=== PATIENT | male | born 1995 | race Caucasian/White ===

== ENCOUNTER 2017-03-25 14:46 | Emergency (ER) | payer BC ==
[2017-03-25] MEDS ORDERED: ONDANSETRON 4 MG/2 ML VIAL IVP ONE ×2 (15:11→15:21)
[2017-03-25] MEDS ORDERED: NS 1,000 ML IV ONE ×2 (15:12→15:21)
[2017-03-25] MEDS ORDERED: PROMETHAZINE HCL 25 MG/ML INJ IVP ONE (15:21)
[2017-03-25] MEDS ORDERED: FAMOTIDINE 20 MG/NACL 50 ML IV ONE (15:21)
--- NOTE | 2017-03-25 15:27 | EDPHY ---
H & P Time Seen by Provider: 03/25/17 15:12 HPI/ROS: HPI Nausea and vomiting, weakness and fatigue. 21-year-old male by private vehicle with his friend. He is a student [employer]. He was out drinking alcohol last night. He reports he did 9-10 shots of liquor between the hours of 9:00 p.m. and 12 midnight. He reports he went to sleep at 12 midnight. He reports he woke at 6:00 a.m. tried to drink some water, became nauseous and started vomiting. He has been unable to keep any fluids down since last night. He was seen at an urgent care earlier today. He was given Zofran 2 L of IV normal saline as well as some morphine. He felt better. He then left the urgent care and started throwing up again. He describes having diffuse crampy abdominal discomfort. No diarrhea. ROS: Constitutional: No fever, no chills. He describes generalized weakness. Eyes: No discharge. No changes in vision. ENT: No sore throat. No nasal congestion or rhinorrhea. Respiratory: No cough. No shortness of breath. Cardiac: No chest pain, no palpitations. Gastrointestinal: As above, no diarrhea. Genitourinary: No hematuria. No dysuria or increased frequency with urination. Musculoskeletal: No back pain. No neck pain. No myalgias or arthralgias. Skin: No rashes. Neurological: No headache. No focal weakness or altered sensation. Past medical history: Cholecystectomy, irritable bowel syndrome. Social history: Nonsmoker. Student [employer]. Here with his friend. Drinks alcohol socially. Physical Exam: General Appearance: Alert, he appears uncomfortable. This patient is responding to questions appropriately and in full sentences. This patient appears well-hydrated and well-nourished. Eyes: Pupils equal and round no pallor or injection. No lid edema, erythema or injection. ENT, Mouth: Mucous membranes are dry. Respiratory: There are no retractions, lungs are clear to auscultation with good air movement bilaterally. Cardiovascular: Regular rate and rhythm. Bradycardia. No murmur. Gastrointestinal: Abdomen is soft and nontender, no masses, bowel sounds normal. No focal tenderness at McBurney's point. No Palomo sign. Neurological: Motor sensory function is grossly intact. Cranial nerves are normal. Gait is normal. Skin: Warm and dry, no rashes. Musculoskeletal: Neck is supple and nontender. Extremities are symmetrical. All joints range without pain or impingement. Psychiatric: No agitation. No depression. Database: EKG: EKG time is 3:35 p.m.; EKG shows a sinus bradycardia, narrow complex with ventricular rate of 40. Probable left ventricular hypertrophy, biphasic T-wave inversions noted in V1 through V3. QTC interval prolonged at 5:35 a.m.. Interpreted by me. EKG 2, time 5:52 p.m.; sinus bradycardia with ventricular rate of 46. Nonspecific intraventricular conduction delay noted. EKG interpretation probable left ventricular hypertrophy. Biphasic T-wave noted in V1 and V2. Imaging: Upright abdominal x-ray series: No obstructive pattern. No free air. Interpreted by me. Procedures: Emergency department course: IV placed. Patient placed on a wet machine cutter. Vital signs reviewed. Patient afebrile. Patient's heart rate has been in the upper 30s to low 40s. This may be partially secondary to the anxiety lytic affect of morphine he was given at urgent care. EKG will be obtained. Patient started on IV normal saline with 1-2 L to be given over the next 1-2 hours. Patient will initially be given 4 mg of IV Zofran, 20 mg of IV Pepcid and 6.25 mg of IV Phenergan. 3:30 p.m., discussed patient's low heart rate. He reports that his heart rate usually runs in the low to mid 40s. EKG being obtained. He reports his father is a physician. He denies any antihypertensive medication or beta blockers. He does not engage in insurance sports. 3:40 p.m., EKG reviewed, echocardiogram ordered. 4:25 p.m., echocardiogram completed, study grossly normal. Official read by director multimedia pending. Patient re-evaluated. He was started on his 2nd L of IV normal saline in our emergency department he will be given 0.25 mg of IV hydromorphone for abdominal discomfort which she describes as cramping in his upper abdomen. Results of his diagnostic studies discussed with him. central communications specialist shows a narrow complex sinus bradycardia with ventricular rate of 48. 5:45 p.m.. Spoke to the patient's father. His named Antonio. He is an anesthesiologist. The patient's case, emergency department workup and all test results were discussed with him in detail. The patient is doing much better at this time. He is tolerating oral fluids. He states that he feels much better. His father feels comfortable with him going home. We will arrange for follow- up with Cardiology. 5:50 p.m., patient re-evaluated. Resting comfortably at this time. He is much more alert. He has got good color in his cheeks. He is tolerating oral fluids. He reports to me that he feels much, much better. I discussed my conversation with his father. I will repeat an EKG. His wet machine cutter currently shows a sinus rhythm with a ventricular rate in the 70s. Narrow complex. Plan for discharge and follow-up discussed with the patient. Return to emergency department precautions reviewed. All of his questions were answered. He was discharged in good condition. Differential Diagnosis: The differential diagnosis on this patient includes but is not limited to food borne illness, gastritis, bradycardia. Cholecystitis, pancreatitis, bowel obstruction, appendicitis, other surgical etiology unlikely. This represents a partial list of diagnoses considered. These considerations are based on history , physical exam, past history, reassessment and diagnostic testing. Smoking Status: Current every day smoker Constitutional: Initial Vital Signs Temperature (C) 36.6 C 03/25/17 14:47 Heart Rate 38 L 03/25/17 14:47 Respiratory Rate 18 03/25/17 14:47 O2 Sat (%) 99 03/25/17 14:47 O2 Delivery Mode Room Air Allergies/Adverse Reactions: No Known Allergies Allergy (Unverified 03/25/17 16:32) Home Medications: Medication Instructions Recorded NK [No Known Home Meds] 03/25/17 Medical Decision Making - Diagnostics Imaging Results: Imaging Impressions Abdomen X-Ray 03/25/17 15:22 Impression: 1. Normal upright abdomen series. - Data Points Laboratory Results: Laboratory Results 03/25/17 15:25 03/25/17 15:25 03/25/17 03/25/17 03/25/17 15:25 15:25 15:25 WBC 12.00 10^3/uL H 10^3/uL (3.80-9.50) RBC 5.20 10^6/uL 10^6/uL (4.40-6.38) Hgb 15.4 g/dL g/dL (13.7-17.5) Hct 44.4 % % (40.0-51.0) MCV 85.4 fL fL (81.5-99.8) MCH 29.6 pg pg (27.9-34.1) MCHC 34.7 g/dL g/dL (32.4-36.7) RDW 12.6 % % (11.5-15.2) Plt Count 321 10^3/uL 10^3/uL (150-400) MPV 10.7 fL fL (8.7-11.7) Neut % (Auto) 88.1 % H % (39.3-74.2) Lymph % (Auto) 8.1 % L % (15.0-45.0) [place] % (Auto) 2.9 % L % (4.5-13.0) Eos % (Auto) 0.1 % L % (0.6-7.6) Baso % (Auto) 0.4 % % (0.3-1.7) Nucleat RBC Rel Count 0.0 % % (0.0-0.2) Absolute Neuts (auto) 10.57 10^3/uL H 10^3/uL (1.70-6.50) Absolute Lymphs (auto) 0.97 10^3/uL L 10^3/uL (1.00-3.00) Absolute Monos (auto) 0.35 10^3/uL 10^3/uL (0.30-0.80) Absolute Eos (auto) 0.01 10^3/uL L 10^3/uL (0.03-0.40) Absolute Basos (auto) 0.05 10^3/uL 10^3/uL (0.02-0.10) Absolute Nucleated RBC 0.00 10^3/uL 10^3/uL (0-0.01) Immature Gran % 0.4 % % (0.0-1.1) Immature Gran # 0.05 10^3/uL 10^3/uL (0.00-0.10) PT 14.2 SEC SEC (12.0-15.0) INR 1.11 (0.83-1.16) APTT 28.1 SEC SEC (23.0-38.0) Sodium 138 mEq/L mEq/L (134-144) Potassium 4.4 mEq/L mEq/L (3.5-5.2) Chloride 102 mEq/L mEq/L (97-110) Carbon Dioxide 20 mEq/l L mEq/l (22-31) Anion Gap 16 mEq/L mEq/L (8-16) BUN 12 mg/dL mg/dL (7-23) Creatinine 0.9 mg/dL mg/dL (0.7-1.3) Estimated GFR > 60 Glucose 87 mg/dL mg/dL (70-100) Calcium 10.3 mg/dL mg/dL (8.5-10.4) Total Bilirubin 3.4 mg/dL H mg/dL (0.1-1.4) Conjugated Bilirubin 0.5 mg/dL mg/dL (0.0-0.5) Unconjugated Bilirubin 2.9 mg/dL H mg/dL (0.0-1.1) AST 21 IU/L IU/L (17-59) ALT 35 IU/L IU/L (21-72) Alkaline Phosphatase 87 IU/L IU/L (38-126) Troponin I < 0.012 ng/mL ng/mL (0.000-0.034) NT-Pro-B Natriuret Pep 80 pg/mL pg/mL (0-125) Total Protein 7.9 g/dL g/dL (6.3-8.2) Albumin 5.1 g/dL H g/dL (3.5-5.0) Lipase 20 IU/L L IU/L (23-300) Medications Given: Discontinued Medications Hydromorphone HCl (Dilaudid) 0.25 mg IVP EDNOW ONE Stop: 03/25/17 16:25 Last Admin: 03/25/17 16:30 Dose: 0.25 mg Sodium Chloride (Ns) 1,000 mls @ 0 mls/hr IV EDNOW ONE PRN Reason: Wide Open Stop: 03/25/17 15:13 Last Admin: 03/25/17 15:23 Dose: 1,000 mls Sodium Chloride (Ns) 1,000 mls @ 0 mls/hr IV EDNOW ONE; Wide Open PRN Reason: Protocol Stop: 03/25/17 15:22 Last Admin: 03/25/17 16:29 Dose: 1,000 mls Famotidine/Sodium Chloride (Pepcid 20 Mg (Premix)) 50 mls @ 200 mls/hr IV EDNOW ONE Stop: 03/25/17 15:35 Last Admin: 03/25/17 15:40 Dose: 50 mls Ondansetron HCl (Zofran) 4 mg IVP EDNOW ONE Stop: 03/25/17 15:12 Last Admin: 03/25/17 15:23 Dose: 4 mg Ondansetron HCl (Zofran) 4 mg IVP EDNOW ONE Stop: 03/25/17 15:22 Last Admin: 03/25/17 15:38 Dose: Not Given Promethazine HCl (Phenergan) 6.25 mg IVP EDNOW ONE Stop: 03/25/17 15:22 Last Admin: 03/25/17 16:39 Dose: Not Given Departure - Departure Disposition: Home, Routine, Self-Care Clinical Impression: Bradycardia, Nausea and vomiting, Dehydration, Hyperbilirubinemia Condition: Good Instructions: Dehydration (ED), Acute Nausea and Vomiting (ED) Additional Instructions: Read and follow provided instructions. Follow-up with Cardiology, Dr. Edward Salgado, or 1 of his partners this week for further evaluation as discussed. Call their office Sunday morning at 9:00 a.m. for appointment time. They will have access to the test we did here as well as the echocardiogram. Do not drink alcohol. Keep well hydrated. A good fluid to drink is Gatorade mixed with water in a 1- 1 dilution over ice. Return to the emergency department for worsening symptoms, abdominal pain, vomiting and inability to keep fluids down despite medications, weakness, lightheadedness, chest pain, shortness of breath or other serious concerns. Referrals: ANGEL LUIS BELLA [Other] - As per Instructions Edward Salgado MD [Medical Doctor] - As per Instructions
[2017-03-25 15:37] LABS: % IMMATURE GRANULYOCYTES 0.4 % (0.0-1.1); ABSOLUTE IMMATURE GRANULOCYTES 0.05 10^3/uL (0.00-0.10); ADD DIFF? NO; ADD MORPH? NO; ADD SCAN? NO; ATYPICAL LYMPHOCYTE FLAG 0 (0-99); FRAGMENT RBC FLAG 0 (0-99); HEMATOCRIT 44.4 % (40.0-51.0); HEMOGLOBIN 15.4 g/dL (13.7-17.5); LEFT SHIFT FLG 0 (0-99); LIPEMIA HEMOLYSIS FLAG 90 (0-99); MEAN CELL HEMOGLOBIN 29.6 pg (27.9-34.1); MEAN CELL HEMOGLOBIN CONCENTR. 34.7 g/dL (32.4-36.7); MEAN CELL VOLUME 85.4 fL (81.5-99.8); MEAN PLATELET VOLUME 10.7 fL (8.7-11.7); PLATELET CLUMPS FLAG 10 (0-99); PLATELET COUNT 321 10^3/uL (150-400); RED CELL DISTRIBUTION WIDTH 12.6 % (11.5-15.2)
--- NOTE | 2017-03-25 15:37 | CPEKG ---
Heart Rate: 40 RR Interval: 1500 P-R Interval: 140 QRSD Interval: 104 QT Interval: 612 QTC Interval: 500 P Withee: 57 QRS Withee: 70 T Wave Withee: 79 EKG Severity - ABNORMAL ECG - EKG Impression: SINUS BRADYCARDIA EKG Impression: PROBABLE LEFT VENTRICULAR HYPERTROPHY EKG Impression: ABNORMAL T, CONSIDER ISCHEMIA, ANT-LAT LEADS EKG Impression: PROLONGED QT INTERVAL Electronically Signed By: Bethanie Blackwood 25-Mar-2017 20:38:45
[2017-03-25 15:48] LABS: INR 1.11 (0.83-1.16); PROTIME(PATIENT) 14.2 SEC (12.0-15.0)
[2017-03-25 15:49] LABS: APTT 28.1 SEC (23.0-38.0)
[2017-03-25 15:57] LABS: ALANINE AMINOTRANSFERASE 35 IU/L (21-72); ALBUMIN 5.1 g/dL (3.5-5.0); ALKALINE PHOSPHATASE 87 IU/L (38-126); ANION GAP 16 mEq/L (8-16); ASPARTATE AMINOTRANSFERASE 21 IU/L (17-59); BILIRUBIN,TOTAL 3.4 mg/dL (0.1-1.4); BILIRUBIN-CONJUGATED 0.5 mg/dL (0.0-0.5); BILIRUBIN-UNCONJUGATED 2.9 mg/dL (0.0-1.1); CALCIUM 10.3 mg/dL (8.5-10.4); CARBON DIOXIDE 20 mEq/l (22-31); CHLORIDE 102 mEq/L (97-110); CREATININE 0.9 mg/dL (0.7-1.3); GLOMERULAR FILTRATION RATE > 60; GLUCOSE 87 mg/dL (70-100); POTASSIUM 4.4 mEq/L (3.5-5.2); SODIUM 138 mEq/L (134-144); TOTAL PROTEIN 7.9 g/dL (6.3-8.2)
[2017-03-25 16:08] LABS: TROPONIN I < 0.012 ng/mL (0.000-0.034)
[2017-03-25] MEDS ORDERED: HYDROmorphONE/DILAUDID 1 MG/ML INJ IVP ONE (16:24)
[2017-03-25 17:44] VITALS: TEMP 97.7
--- NOTE | 2017-03-25 17:54 | CPEKG ---
Heart Rate: 46 RR Interval: 1304 P-R Interval: 124 QRSD Interval: 110 QT Interval: 508 QTC Interval: 445 P Lyman: 45 QRS Lyman: 53 T Wave Lyman: 64 EKG Severity - ABNORMAL ECG - EKG Impression: SINUS BRADYCARDIA EKG Impression: NONSPECIFIC INTRAVENTRICULAR CONDUCTION DELAY EKG Impression: PROBABLE LEFT VENTRICULAR HYPERTROPHY Electronically Signed By: Bethanie Blackwood 25-Mar-2017 20:38:45
[2017-03-25 18:21] VITALS: BP 136/76; PULSE 60; RESP 12; O2SAT 97
--- NOTE | 2017-03-26 09:10 | ECHO ---
[id number] + + [address] : : [place] [address] : : [phone] + + Adult Echocardiographic Report + ----+ :Name: Viet ORTEGA Date: 03/25/2017 04:18 PM : : Hospital Admission Number: [id number] Location : ER: :: 1995 Gender: Male Height: 72 in : :Age: 21 yrs Race: WH Weight: 200 lb : :Reason For Study: Chest Pain : : BSA: 2.1 meters2 : + ----+ MMode/2D Measurements & Calculations IVSd: 0.89 cm LVIDd: 5.4 cm FS: 34.7 % Ao root diam: LVPWd: 0.88 cm LVIDs: 3.5 cm EDV(Teich): 3.3 cm 140.7 ml LA dimension: ESV(Teich): 3.6 cm 51.6 ml EF(Teich): 63.3 % LVLd ap4: 8.5 cm SV(MOD-sp4): EDV(MOD-sp4): 83.0 ml 118.0 ml LVLs ap4: 6.4 cm ESV(MOD-sp4): 35.0 ml EF(MOD-sp4): 70.3 % Normal Measurement Values: + + :LVIDd (3.5-5.7cm) IVSd (0.6-1.1cm) LVPWd (0.6-1.1cm) Aortic Root (2.0-3.7cm)Left Atrium (1.5-4.0cm): :LV Vol(d) (76-115ml) LV Vol(s) (29-48ml) Ejec Fraction (50-65%)PV Srinath (0.6- 1.2m/s) TV Srinath (0.4-1.0m/s) : :MV E Srinath (0.8-1.0m/s)MV A Srinath (0.3-1.0m/s)LVOT Srinath (0.7-1.2m/s) Asc Ao Srinath ( 0.9-1.8m/s) : + + Doppler Measurements & Calculations MV E max srinath: 86.4 cm/sec Ao V2 max: 155.0 cm/sec MV A max srinath: 56.3 cm/sec Ao max P.6 mmHg MV E/A: 1.5 Left Ventricle The left ventricle is normal in size. There is normal left ventricular wall thickness. Left ventricular systolic function is normal. Ejection Fraction = 65-70%. No regional wall motion abnormalities noted. Right Ventricle The right ventricle is normal in size and function. Atria The left atrial size is normal. Right atrial size is normal. The interatrial septum is intact with no evidence for an atrial septal defect. Mitral Valve The mitral valve is normal in structure and function. There is no evidence of mitral valve prolapse. There is no mitral valve stenosis. There is trace mitral regurgitation. Tricuspid Valve Normal tricuspid valve. There is trace tricuspid regurgitation. Aortic Valve The aortic valve is trileaflet. The aortic valve opens well. There is no aortic stenosis. There is no aortic insufficiency. Pulmonic Valve The pulmonic valve is normal in structure and function. Trace pulmonic valvular regurgitation. Great Vessels The aortic root is normal size. Pericardium/Pleural There is no pericardial effusion. Conclusion A complete two-dimensional transthoracic echocardiogram was performed (2D, M-mode, Doppler and color flow Doppler). Left ventricular systolic function is normal. Ejection Fraction = 65-70%. There is trace mitral regurgitation. There is trace tricuspid regurgitation. Trace pulmonic valvular regurgitation. Final Reading Physician: Adan Matias MD electronically signed on 03/26/2017 09:09 AM Ordering Physician: Bethanie Blackwood Performed By: Marianne Herbert, CS
== END 2017-03-25 18:21 | disposition home or self-care (01) ==
PROC: 3E0337Z Introduction of Electrolytic and Water Balance Substance into Peripheral Vein, Percutaneous Approach (ICD-10-PCS; principal; 2017-03-25)
DX: R17 Unspecified jaundice (principal); E86.0 Dehydration; R00.1 Bradycardia, unspecified; F17.200 Nicotine dependence, unspecified, uncomplicated; E86.9 Volume depletion, unspecified
CPT/HCPCS: 96365; J1170; J2405; J2550

== ENCOUNTER 2017-05-01 10:29 | Emergency (ER) | payer BC ==
[2017-05-01] MEDS ORDERED: NS 1,000 ML IV ONE (11:02)
[2017-05-01] MEDS ORDERED: ONDANSETRON 4 MG/2 ML VIAL IVP ONE (11:02)
[2017-05-01] MEDS ORDERED: HALOPERIDOL LACT 5 MG/ML INJ IVP ONE (11:02)
--- NOTE | 2017-05-01 11:02 | EDPHY ---
H & P Stated Complaint: Abdo pain since this morning with N/V. Time Seen by Provider: 05/01/17 10:35 HPI/ROS: CHIEF COMPLAINT: Acute exacerbation of chronic abdominal pain HISTORY OF PRESENT ILLNESS: The patient presents to the ED complaining of an acute exacerbation of chronic abdominal pain. The patient has a several year history of abdominal pain. The patient was diagnosed with gallbladder dysfunction and is status post cholecystectomy 2013. The patient reports that he was in the emergency department approximately 1 month ago with similar symptoms attributed to alcoholic gastritis. He reports he has not had much alcohol to drink over the past several days. The patient does report he uses marijuana 3 to 4 times a week. He has reportedly seen a number of GI specialist none of whom have talked with the patient about possible cannabis induced hyperemesis. The patient complains of generalized abdominal pain. The patient denies additional acute complaints. REVIEW OF SYSTEMS: A comprehensive 10 point review of systems is otherwise negative aside from elements mentioned in the history of present illness. Source: Patient Exam Limitations: No limitations - Personal History Current Tetanus Diphtheria and Acellular Pertussis (TDAP): No - Medical/Surgical History Hx Asthma: No Hx Chronic Respiratory Disease: No Hx Diabetes: No Hx Cardiac Disease: No Hx Renal Disease: No Hx Cirrhosis: No Hx Alcoholism: No Hx HIV/AIDS: No Hx Splenectomy or Spleen Trauma: No Other PMH: gallbladder - Social History Smoking Status: Current every day smoker - Physical Exam Exam: General Appearance: Alert, mild discomfort Eyes: Pupils equal and round no pallor or injection ENT, Mouth: Mucous membranes moist Respiratory: There are no retractions, lungs are clear to auscultation Cardiovascular: Regular rate and rhythm Gastrointestinal: Minimal generalized abdominal tenderness, normal bowel sounds , no peritoneal last Neurological: A&O, normal motor function, normal sensory exam, normal cranial nerves Skin: Warm and dry, no rashes Musculoskeletal: Neck is supple nontender Extremities: symmetrical, full range of motion Constitutional: Initial Vital Signs Temperature (C) 36.9 C 05/01/17 10:34 Heart Rate 57 L 05/01/17 10:34 Respiratory Rate 20 05/01/17 10:34 Blood Pressure 152/95 H 05/01/17 10:34 O2 Sat (%) 98 05/01/17 10:34 O2 Delivery Mode Room Air Allergies/Adverse Reactions: No Known Allergies Allergy (Unverified 03/25/17 16:32) Home Medications: Medication Instructions Recorded Ondansetron Odt [Zofran Odt] 4 mg PO Q4PRN PRN #20 tab 05/01/17 Medical Decision Making ED Course/Re-evaluation: The patient presents to the ED with an acute exacerbation of chronic abdominal pain and vomiting. The patient's abdominal examination demonstrates only minimal tenderness to palpation with no tenderness to palpation over McBurney's point. The patient does have a prior history of cholecystectomy. I reviewed the patient's past medical records from his emergency department visit 1 month ago. The patient had an IV established. He received 2.5 mg of Haldol and 4 mg of IV Zofran. The patient's laboratory studies demonstrate a mild leukocytosis likely secondary to vomiting. The patient has normal serum electrolytes and liver function test. The patient has no evidence of acute pancreatitis. I re-evaluated the patient at 1:15 p.m.. He is sleeping comfortably in the room. He tells me that his pain and nausea have entirely resolved. His abdominal examination remains benign without any clinical evidence of appendicitis. I had a lengthy discussion about the possibility of cannabis induced hyperemesis and have stressed to him the importance of abstinence from marijuana. The patient will be discharged home with customary aftercare instructions and return precautions. Differential Diagnosis: Differential diagnosis considered includes dehydration, gastritis, peptic ulcer disease, cyclic vomiting syndrome, appendicitis - Data Points Laboratory Results: Laboratory Results 05/01/17 10:55 05/01/17 10:55 05/01/17 05/01/17 10:55 10:55 WBC 13.71 10^3/uL H 10^3/uL (3.80-9.50) RBC 5.41 10^6/uL 10^6/uL (4.40-6.38) Hgb 16.3 g/dL g/dL (13.7-17.5) Hct 46.1 % % (40.0-51.0) MCV 85.2 fL fL (81.5-99.8) MCH 30.1 pg pg (27.9-34.1) MCHC 35.4 g/dL g/dL (32.4-36.7) RDW 12.7 % % (11.5-15.2) Plt Count 332 10^3/uL 10^3/uL (150-400) MPV 10.8 fL fL (8.7-11.7) Neut % (Auto) 80.0 % H % (39.3-74.2) Lymph % (Auto) 12.5 % L % (15.0-45.0) [place] % (Auto) 5.4 % % (4.5-13.0) Eos % (Auto) 1.0 % % (0.6-7.6) Baso % (Auto) 0.7 % % (0.3-1.7) Nucleat RBC Rel Count 0.0 % % (0.0-0.2) Absolute Neuts (auto) 10.95 10^3/uL H 10^3/uL (1.70-6.50) Absolute Lymphs (auto) 1.72 10^3/uL 10^3/uL (1.00-3.00) Absolute Monos (auto) 0.74 10^3/uL 10^3/uL (0.30-0.80) Absolute Eos (auto) 0.14 10^3/uL 10^3/uL (0.03-0.40) Absolute Basos (auto) 0.10 10^3/uL 10^3/uL (0.02-0.10) Absolute Nucleated RBC 0.00 10^3/uL 10^3/uL (0-0.01) Immature Gran % 0.4 % % (0.0-1.1) Immature Gran # 0.06 10^3/uL 10^3/uL (0.00-0.10) Sodium 139 mEq/L mEq/L (134-144) Potassium 4.2 mEq/L mEq/L (3.5-5.2) Chloride 101 mEq/L mEq/L (97-110) Carbon Dioxide 22 mEq/l mEq/l (22-31) Anion Gap 16 mEq/L mEq/L (8-16) BUN 14 mg/dL mg/dL (7-23) Creatinine 1.0 mg/dL mg/dL (0.7-1.3) Estimated GFR > 60 Glucose 95 mg/dL mg/dL (70-100) Calcium 11.4 mg/dL H mg/dL (8.5-10.4) Phosphorus 2.7 mg/dL mg/dL (2.5-4.5) Total Bilirubin 3.3 mg/dL H mg/dL (0.1-1.4) Conjugated Bilirubin 0.2 mg/dL mg/dL (0.0-0.5) Unconjugated Bilirubin 3.1 mg/dL H mg/dL (0.0-1.1) AST 18 IU/L IU/L (17-59) ALT 34 IU/L IU/L (21-72) Alkaline Phosphatase 91 IU/L IU/L (38-126) Total Protein 8.6 g/dL H g/dL (6.3-8.2) Albumin 4.9 g/dL g/dL (3.5-5.0) Lipase 25 IU/L IU/L (23-300) Medications Given: Discontinued Medications Haloperidol Lactate (Haldol Injection) 2.5 mg IVP EDNOW ONE Stop: 05/01/17 11:03 Last Admin: 05/01/17 11:07 Dose: 2.5 mg Sodium Chloride (Ns) 1,000 mls @ 0 mls/hr IV EDNOW ONE; Wide Open PRN Reason: Protocol Stop: 05/01/17 11:03 Last Admin: 05/01/17 11:07 Dose: 1,000 mls Ondansetron HCl (Zofran) 4 mg IVP EDNOW ONE Stop: 05/01/17 11:03 Last Admin: 05/01/17 11:07 Dose: 4 mg Departure - Departure Disposition: Home, Routine, Self-Care Clinical Impression: Vomiting, Abdominal pain Condition: Good Instructions: Acute Nausea and Vomiting (ED) Additional Instructions: 1. I recommend complete abstinence from marijuana as this may be exacerbating your symptoms and predisposing you for a condition known as cyclic vomiting syndrome. 2. Zofran as needed for nausea 3. Please follow up with a community service officer coordinator you have been referred to for any ongoing symptoms. 4. Return to the emergency department for markedly worsening symptoms, pain especially in the right lower quadrant, fever or other concerns. This may be the sign of a more serious condition such as appendicitis. Referrals: ANGEL LUIS BELLA [Other] - As per Instructions Leonidas Burris MD [Medical Doctor] - As per Instructions
[2017-05-01 11:25] LABS: ALANINE AMINOTRANSFERASE 34 IU/L (21-72); ALBUMIN 4.9 g/dL (3.5-5.0); ALKALINE PHOSPHATASE 91 IU/L (38-126); ANION GAP 16 mEq/L (8-16); ASPARTATE AMINOTRANSFERASE 18 IU/L (17-59); BILIRUBIN,TOTAL 3.3 mg/dL (0.1-1.4); BILIRUBIN-CONJUGATED 0.2 mg/dL (0.0-0.5); BILIRUBIN-UNCONJUGATED 3.1 mg/dL (0.0-1.1); CALCIUM 11.4 mg/dL (8.5-10.4); CARBON DIOXIDE 22 mEq/l (22-31); CHLORIDE 101 mEq/L (97-110); GLOMERULAR FILTRATION RATE > 60; GLUCOSE 95 mg/dL (70-100); POTASSIUM 4.2 mEq/L (3.5-5.2); SODIUM 139 mEq/L (134-144); TOTAL PROTEIN 8.6 g/dL (6.3-8.2)
[2017-05-01 11:35] LABS: % IMMATURE GRANULYOCYTES 0.4 % (0.0-1.1); ABSOLUTE IMMATURE GRANULOCYTES 0.06 10^3/uL (0.00-0.10); ADD DIFF? NO; ADD MORPH? NO; ADD SCAN? NO; ATYPICAL LYMPHOCYTE FLAG 20 (0-99); FRAGMENT RBC FLAG 0 (0-99); HEMATOCRIT 46.1 % (40.0-51.0); HEMOGLOBIN 16.3 g/dL (13.7-17.5); LEFT SHIFT FLG 0 (0-99); LIPEMIA HEMOLYSIS FLAG 90 (0-99); MEAN CELL HEMOGLOBIN 30.1 pg (27.9-34.1); MEAN CELL HEMOGLOBIN CONCENTR. 35.4 g/dL (32.4-36.7); MEAN CELL VOLUME 85.2 fL (81.5-99.8); MEAN PLATELET VOLUME 10.8 fL (8.7-11.7); PLATELET CLUMPS FLAG 0 (0-99); PLATELET COUNT 332 10^3/uL (150-400); RED BLOOD CELL COUNT 5.41 10^6/uL (4.40-6.38); RED CELL DISTRIBUTION WIDTH 12.7 % (11.5-15.2)
[2017-05-01 13:30] VITALS: BP 102/62; PULSE 69; RESP 16; TEMP 97.9; O2SAT 96
== END 2017-05-01 13:30 | disposition home or self-care (01) ==
DX: R10.84 Generalized abdominal pain (principal); R11.10 Vomiting, unspecified; F17.200 Nicotine dependence, unspecified, uncomplicated; E86.9 Volume depletion, unspecified
CPT/HCPCS: 96374; J2405

== ENCOUNTER 2017-05-01 17:34 | Emergency (ER) | payer BC ==
[2017-05-01 17:40] VITALS: RESP 18
--- NOTE | 2017-05-01 17:46 | EDPHY ---
H & P Stated Complaint: Here earleir for abdo pain, now feels really "anxious" and "panicky" HPI/ROS: CHIEF COMPLAINT: Restless after receiving Haldol this morning HISTORY OF PRESENT ILLNESS: The patient is a 21 y/o male with a history of ADD returning to the ED for the second time today complaining of anxiety and uneasiness. He was evaluated here this morning for [id number] abdominal pain and possible cannabis induced hyperemesis and received Haldol as part of that treatment. He left here feeling restless, overwhelmed, and not feeling like himself. He reports "taking Adderall a lot" for ADHD but not today. He usually takes 20-30mg daily. He denies suicidal or homicidal thoughts. REVIEW OF SYSTEMS: A ten point review of systems was performed and is negative with the exception of the items mentioned in the HPI. Past medical history: ADHD, chronic abdominal pain Past surgical history: Cholecystectomy Family history: noncontributory Social history: student. Father is doctor in [place] Prior medical records reviewed including ED visit from this morning. General Appearance: Alert. Vital signs reviewed. Blood pressure 141/81. Eyes: Pupils equal and round, no conjunctival injection, no discharge. Anicteric. ENT, Mouth: Mucous membranes are moist, no oropharyngeal erythema or edema. Neck: No lymphadenopathy, supple. Respiratory: Lungs are clear to auscultation; no wheezes, rales, or rhonchi. Cardiovascular: Regular rate and rhythm; no murmur, rub, or gallop. Gastrointestinal: Abdomen is soft and nontender, no masses or organomegaly, bowel sounds normal. Skin: Warm and dry, no rashes on exposed skin, normal color. Back: Nontender to palpation over the thoracolumbar spine. No CVAT. Extremities: No lower extremity edema, no calf tenderness or swelling. Neurological: Alert and oriented. Moving all four extremities easily and equally. He is restless shifting about on the bed. Psychiatric: Anxious affect. - Personal History Current Tetanus Diphtheria and Acellular Pertussis (TDAP): Yes - Medical/Surgical History Hx Asthma: No Hx Chronic Respiratory Disease: No Hx Diabetes: No Hx Cardiac Disease: No Hx Renal Disease: No Hx Cirrhosis: No Hx Alcoholism: No Hx HIV/AIDS: No Hx Splenectomy or Spleen Trauma: No Other PMH: gallbladder - Social History Smoking Status: Current every day smoker Constitutional: Initial Vital Signs Temperature (C) 36.4 C 05/01/17 17:37 Heart Rate 87 05/01/17 17:37 Respiratory Rate 18 05/01/17 17:37 Blood Pressure 141/81 H 05/01/17 17:37 O2 Sat (%) 97 05/01/17 17:37 O2 Delivery Mode Room Air Allergies/Adverse Reactions: No Known Allergies Allergy (Unverified 03/25/17 16:32) Home Medications: Medication Instructions Recorded Ondansetron Odt [Zofran Odt] 4 mg PO Q4PRN PRN #20 tab 05/01/17 Medical Decision Making ED Course/Re-evaluation: This is a 21 y/o male who received IV Haldol this morning for cannabis-induced vomiting and abdominal pain and returns tonight for anxiety and restlessness. His symptoms are consistent with Haldol-related akathisia. IV established. 25mg IV Benadryl administered. I spoke with the patient's father on the telephone. He is an anesthesiologist and is comfortable with the diagnosis and plan of treatment. 1830: Patient is currently sleeping comfortably. 0: Patient has awakened and is feeling much better and ready to go home. I' ve discussed use of Benadryl for recurrent symptoms. He will be discharged with standard follow up and care instructions. He is comfortable with this plan. Return precautions discussed. Differential Diagnosis: I considered a differential diagnosis that included but was not limited to tardive dyskinesia, akathisia related to medication, anxiety, and drug-seeking behavior. In this setting I am confident that he was exhibiting akathisia related to the Haldol that he received earlier. - Data Points Medications Given: Discontinued Medications Diphenhydramine HCl (Benadryl Injection) 25 mg IVP EDNOW ONE Stop: 05/01/17 18:02 Last Admin: 05/01/17 18:03 Dose: 25 mg Diphenhydramine HCl (Benadryl) 25 mg PO EDNOW ONE Stop: 05/01/17 19:45 Last Admin: 05/01/17 19:57 Dose: 25 mg Departure - Departure Disposition: Home, Routine, Self-Care Clinical Impression: Akathisia Condition: Good Instructions: Haloperidol (By injection) Additional Instructions: 1. You received Haldol earlier today and I believe your symptoms this evening are related to this. You should avoid this medication (and other medications in this class) in the future. 2. Take 25mg Benadryl if your symptoms recur. 3. Follow up with your primary care provider for unimproved symptoms over the next 1-2 days. 4. Return to the ED for any worsening of condition. Referrals: [facility],. [Clinic] - As per Instructions Stand Alone Forms: School Excuse Report Scribed for: Marialuisa Villegas Report Scribed by: Chen Tidwell Date of Report: 05/01/17 Time of Report: 17:59 Physician Review and Approval Statement: 05/01/17 17:46 Portions of this note were transcribed by the medical scientific liaison. I, Dr. Marialuisa Villegas, personally performed the history, physical exam, and medical decision- making; and confirmed the accuracy of the information in the transcribed note.
[2017-05-01] MEDS ORDERED: diphenhydrAMINE 25 MG CAP PO ONE (19:44)
[2017-05-01 20:00] VITALS: BP 135/69; PULSE 55; TEMP 97.9; O2SAT 100
== END 2017-05-01 20:01 | disposition home or self-care (01) ==
DX: G25.71 Drug induced akathisia (principal); T43.695A Adverse effect of other psychostimulants, initial encounter; F17.200 Nicotine dependence, unspecified, uncomplicated
CPT/HCPCS: 96374; J1200

== ENCOUNTER 2017-06-10 13:56 | Emergency (ER) | payer BC ==
[2017-06-10 14:07] VITALS: RESP 18
[2017-06-10] MEDS ORDERED: IBUPROFEN 200 MG TAB PO ONE ×2 (14:39→14:54)
--- NOTE | 2017-06-10 15:20 | EDPHY ---
General Narrative: CHIEF COMPLAINT: Fall, ankle injury HISTORY OF PRESENT ILLNESS: Patient complains of left ankle injury status post skydiving accident. He says that as he was a landing, he came in too fast. He landed in a plantar flexion of the left ankle. Sudden onset of pain in the left ankle and proximal foot. Unable to bear weight. Difficulty dorsiflexion plantar flexion due to pain. No numbness. Does have some paresthesia of the left dorsum of foot. He has no heel tenderness. Has some superficial left knee tenderness. No head strike or loss of conscious. No chest or back pain. No abdominal pain. No other associated complaints or modifying factors. ESTABLISHED ORTHOPEDIST: None REVIEW OF SYSTEMS: Ten systems reviewed and are negative unless otherwise noted in the HPI PAST MEDICAL HISTORY: Attention deficit hyperactivity disorder. PAST SURGICAL HISTORY: None SOCIAL HISTORY: Nonsmoker. 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 Originally from [place] FAMILY HISTORY: Noncontributory EXAMINATION General Appearance: Alert, no distress HEENT: Head is normocephalic and atraumatic. Pupils are equal round reactive Cardiovascular: Pulses normal throughout. Symmetric DP pulses 2+. Symmetric PT pulses 2+. Brisk cap refill Neurological: A&O, no footdrop. Normal light sensation to the dorsum of the left foot. Skin: Warm and dry, no rash. No ecchymosis. No laceration, abrasion or puncture. Extremities: Significant tenderness over the left ankle lateral and medial malleoli. Mild tenderness to the base of the left tibia. Range of motion is minimal in the left ankle due to pain. He does have some dorsiflexion and plantar flexion. There is no tenderness to palpation of the left calcaneus. No tenderness of the proximal left fibula. Left foot is warm to the touch. Psychiatric: Mood and affect normal DIFFERENTIAL DIAGNOSES: Including but not limited to sprain, strain, fracture, dislocation, fracture dislocation MDM: 3:15 p.m. Acute sprain of the left ankle and foot after skydiving injury. X-ray is negative for any acute injury. He does have some paresthesia and significant pain, but his pulses are symmetric. There is no laceration. I will place him in a Max boot and crutches. Orthopedic follow-up will be provided. We discussed ED precautions. We discussed nonweightbearing, anti-inflammatories and pain medication as needed. He is comfortable with this plan and discharged in stable condition. ED Precautions: Worsening pain. Erythema, edema, cyanosis, pallor, paresthesia or anesthesia. - Diagnostics Imaging Results: Imaging Impressions Ankle X-Ray 06/10/17 14:07 Impression: No acute osseous findings. - History Smoking Status: Former smoker - Objective Vital Signs: Initial Vital Signs Temperature (C) 98.6 F 06/10/17 14:05 Heart Rate 62 06/10/17 14:05 Respiratory Rate 18 06/10/17 14:05 Blood Pressure 125/75 H 06/10/17 14:05 O2 Sat (%) 98 06/10/17 14:05 O2 Delivery Mode Room Air Allergies/Adverse Reactions: No Known Allergies Allergy (Unverified 03/25/17 16:32) Home Medications: Medication Instructions Recorded oxyCODONE HCL/ACETAMINOPHEN 1 each PO Q4-6PRN PRN #13 tablet 06/10/17 [Percocet 5-325 mg Tablet] Medications Given: Discontinued Medications Ibuprofen (Motrin) 800 mg PO EDNOW ONE Stop: 06/10/17 14:55 Last Admin: 06/10/17 15:00 Dose: 800 mg Departure - Departure Disposition: Home, Routine, Self-Care Clinical Impression: Ankle sprain Qualifiers: Encounter type: initial encounter Involved ligament of ankle: unspecified ligament Laterality: left Qualified Code(s): S93.402A - Sprain of unspecified ligament of left ankle, initial encounter Foot sprain Qualifiers: Encounter type: initial encounter Laterality: left Qualified Code(s): S93.602A - Unspecified sprain of left foot, initial encounter Condition: Good Instructions: Ankle Sprain (ED), Foot Sprain (ED) Additional Instructions: 1. Nonweightbearing until seen by orthopedist 2. Gawt-uik-ovohaew anti-inflammatories as discussed as needed 3. Pain medication as prescribed as needed 4. ED precautions as discussed Referrals: Hillary Sparsk MD [Medical Doctor] - As per Instructions Prescriptions: oxyCODONE HCL/ACETAMINOPHEN [Percocet 5-325 mg Tablet] 1 each PO Q4-6PRN PRN # 13 tablet PRN Reason: Pain, Breakthrough
[2017-06-10 15:35] VITALS: BP 153/75; PULSE 64; TEMP 98.1; O2SAT 94
== END 2017-06-10 15:34 | disposition home or self-care (01) ==
DX: S93.402A Sprain of unspecified ligament of left ankle, initial encounter (principal); S93.602A Unspecified sprain of left foot, initial encounter; Z87.891 Personal history of nicotine dependence; V00.321A Fall from snow-skis, initial encounter; Y92.89 Other specified places as the place of occurrence of the external cause; Y99.8 Other external cause status; Y93.23 Activity, snow (alpine) (downhill) skiing, snowboarding, sledding, tobogganing and snow tubing
CPT/HCPCS: L4386

== ENCOUNTER 2017-08-10 07:33 | Emergency (ER) | payer BC ==
[2017-08-10] MEDS ORDERED: NS 1,000 ML IV ONE (07:43)
[2017-08-10] MEDS ORDERED: ONDANSETRON 4 MG/2 ML VIAL IVP ONE (07:44)
[2017-08-10] MEDS ORDERED: LORazepam 2 MG/ML INJ IVP ONE (07:47)
--- NOTE | 2017-08-10 07:49 | EDPHY ---
H & P Stated Complaint: Sharp mid-epigastric pain. N/V Time Seen by Provider: 08/10/17 07:42 HPI/ROS: CHIEF COMPLAINT: Acute exacerbation of chronic abdominal pain HISTORY OF PRESENT ILLNESS: The patient presents to the ED with a 1 day history of an acute exacerbation of chronic abdominal pain. The patient reports epigastric and right upper quadrant pain and discomfort. The patient has a history of chronic abdominal pain. He is status post cholecystectomy. The patient denies significant alcohol use. The patient reports he has not been using marijuana recently. The patient reports his symptoms are moderate to severe in nature. He denies any melena or hematemesis. REVIEW OF SYSTEMS: A comprehensive 10 point review of systems is otherwise negative aside from elements mentioned in the history of present illness. Source: Patient Exam Limitations: No limitations - Personal History Current Tetanus/Diphtheria Vaccine: Yes Current Tetanus Diphtheria and Acellular Pertussis (TDAP): Yes - Medical/Surgical History Hx Asthma: No Hx Chronic Respiratory Disease: No Hx Diabetes: No Hx Cardiac Disease: No Hx Renal Disease: No Hx Cirrhosis: No Hx Alcoholism: No Hx HIV/AIDS: No Hx Splenectomy or Spleen Trauma: No Other PMH: shila 2013 - Social History Smoking Status: Former smoker - Physical Exam Exam: General Appearance: Alert, mild discomfort, retching Eyes: Pupils equal and round no pallor or injection ENT, Mouth: Mucous membranes moist Respiratory: There are no retractions, lungs are clear to auscultation Cardiovascular: Regular rate and rhythm Gastrointestinal: Minimal epigastric tenderness, normal bowel sounds Neurological: A&O, normal motor function, normal sensory exam, normal cranial nerves Skin: Warm and dry, no rashes Musculoskeletal: Neck is supple nontender Extremities: symmetrical, full range of motion Constitutional: Initial Vital Signs Temperature (C) 36.5 C 08/10/17 07:40 Heart Rate 75 08/10/17 07:40 Respiratory Rate 15 08/10/17 07:40 Blood Pressure 142/107 H 08/10/17 07:40 O2 Sat (%) 100 08/10/17 07:40 O2 Delivery Mode Room Air Allergies/Adverse Reactions: No Known Allergies Allergy (Unverified 03/25/17 16:32) Home Medications: Medication Instructions Recorded Adderall 10 mg Tablet 08/10/17 Ondansetron Odt [Zofran Odt] 4 mg PO Q4PRN PRN #20 tab 01/26/18 Medical Decision Making ED Course/Re-evaluation: The patient presents to the ED with an acute episode of abdominal pain and vomiting. The last time in the emergency department I did raise the possibility to the patient that he was experiencing cannabis induced hyperemesis. The patient tells me he has been abstinent from marijuana however his urine toxicology continues to demonstrate the presence of THC. The patient had an IV established. The patient received IV Ativan and 4 mg of IV Zofran. He received a L of normal saline. The patient's electrolyte studies are within normal limits. The patient was given a GI cocktail at 9:15 a.m. The patient was given a po challenge at 9:40 a.m. I re-evaluated the patient at 10:00 a.m.. His vomiting has resolved. I find his abdominal examination to be benign. At this point time I do feel he can be discharged home with customary aftercare instructions and return precautions. He will be given a prescription for Zofran. I have reminded the patient that I think he should completely abstain from using marijuana and THC. Differential Diagnosis: Differential diagnosis considered includes dehydration, cyclic vomiting syndrome , metabolic abnormality, renal failure - Data Points Laboratory Results: Laboratory Results 08/10/17 07:40 08/10/17 08/10/17 08:15 07:40 Sodium 146 mEq/L H mEq/L (135-145) Potassium 4.3 mEq/L mEq/L (3.5-5.2) Chloride 105 mEq/L mEq/L (97-110) Carbon Dioxide 25 mEq/l mEq/l (22-31) Anion Gap 16 mEq/L mEq/L (8-16) BUN 10 mg/dL mg/dL (7-23) Creatinine 0.9 mg/dL mg/dL (0.7-1.3) Estimated GFR > 60 Glucose 91 mg/dL mg/dL (70-100) Calcium 10.3 mg/dL mg/dL (8.5-10.4) Urine Opiates Screen NEGATIVE (NEGATIVE) Urine Barbiturates NEGATIVE (NEGATIVE) Ur Phencyclidine Scrn NEGATIVE (NEGATIVE) Ur Amphetamine Screen NEGATIVE (NEGATIVE) U Benzodiazepines Scrn NEGATIVE (NEGATIVE) Urine Cocaine Screen NEGATIVE (NEGATIVE) U Marijuana (THC) Screen NON-NEGATIVE H (NEGATIVE) Medications Given: Discontinued Medications Al Hydroxide/Mg Hydroxide (Maalox Susp) 30 ml PO ONCE ONE Stop: 08/10/17 08:57 Last Admin: 08/10/17 09:06 Dose: 30 ml Hyoscyamine Sulfate (Levsin, Hyomax-Sl) 0.25 mg PO ONCE ONE Stop: 08/10/17 08:57 Last Admin: 08/10/17 09:05 Dose: 0.25 mg Sodium Chloride (Ns) 1,000 mls @ 0 mls/hr IV EDNOW ONE; Wide Open PRN Reason: Protocol Stop: 08/10/17 07:44 Last Admin: 08/10/17 07:51 Dose: 1,000 mls Lidocaine (Lidocaine 2% Viscous) 15 ml PO ONCE ONE Stop: 08/10/17 08:57 Last Admin: 08/10/17 09:06 Dose: 15 ml Lorazepam (Ativan Injection) 1 mg IVP EDNOW ONE Stop: 08/10/17 07:48 Last Admin: 08/10/17 07:52 Dose: 1 mg Ondansetron HCl (Zofran) 4 mg IVP EDNOW ONE Stop: 08/10/17 07:45 Last Admin: 08/10/17 07:51 Dose: 4 mg Departure - Departure Disposition: Home, Routine, Self-Care Clinical Impression: Cyclic vomiting syndrome Qualifiers: Vomiting Intractability: non-intractable Nausea presence: with nausea Qualified Code(s): G43.A0 - Cyclical vomiting, not intractable Abdominal pain Qualifiers: Abdominal location: epigastric Qualified Code(s): R10.13 - Epigastric pain Condition: Good Instructions: Acute Abdominal Pain (ED) Additional Instructions: 1. As previously recommended, you should completely abstain from using marijuana in THC. 2. 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 3. Zofran as needed for nausea Referrals: [facility] [Other] - As per Instructions Prescriptions: Ondansetron Odt [Zofran Odt] 4 mg PO Q4PRN PRN #20 tab PRN Reason: For Nausea
[2017-08-10 08:28] VITALS: RESP 18
[2017-08-10] MEDS ORDERED: LIDOCAINE 2% VISCOUS 15 ML UDCUP PO ONE (08:56)
[2017-08-10] MEDS ORDERED: HYOSCYAMINE SULFATE 0.125 MG TAB PO ONE (08:56)
[2017-08-10] MEDS ORDERED: MAG HYDROX/AL HYDROX/SIMETH 30 ML UDCUP PO ONE (08:56)
[2017-08-10 10:28] VITALS: BP 118/76; PULSE 81; TEMP 97.9; O2SAT 99
== END 2017-08-10 10:28 | disposition home or self-care (01) ==
DX: G43.A0 Cyclical vomiting, in migraine, not intractable (principal); E86.9 Volume depletion, unspecified; Z87.891 Personal history of nicotine dependence
CPT/HCPCS: 80305; 96374; J2060; J2405